=== PATIENT | female | born 1990 | race Caucasian/White ===

== ENCOUNTER 2022-05-21 22:02 | Inpatient (IN) | payer BC ==
[2022-05-21 22:30] VITALS: BMI 20.6
[2022-05-21] MEDS ORDERED: hydrALAZINE 20 MG/ML VIAL SLOW IVP PRN ×2 (22:34→22:35)
[2022-05-21] MEDS ORDERED: Misoprostol 200 MCG TAB PR PRN (22:35)
[2022-05-21] MEDS ORDERED: Lidocaine 1% (PF) 30 ML VIAL SC PRN (22:35)
[2022-05-21] MEDS ORDERED: Acetaminophen 500 MG TAB PO PRN (22:35)
[2022-05-21] MEDS ORDERED: Butorphanol Tartrate 1 MG/ML VIAL SLOW IVP PRN (22:35)
[2022-05-21] MEDS ORDERED: Carboprost 250 MCG/ML AMP IM PRN (22:35)
[2022-05-21] MEDS ORDERED: Ondansetron PF 4 MG/2 ML Vial IVP PRN (22:35)
[2022-05-21] MEDS ORDERED: Promethazine HCl 25 MG/ML VIAL IM PRN (22:35)
[2022-05-21] MEDS ORDERED: Methylergonovine 0.2 MG/ML VIAL IM PRN (22:35)
[2022-05-22 01:02] LABS: Hemoglobin 12.9 g/dL (12.0-15.5); Mean Corpuscular HGB CONC 35.1 g/dL (32.0-36.0); Mean Corpuscular Hemoglobin 31.4 pg (27.0-33.0); Mean Corpuscular Volume 89.5 fl (81.6-98.3); Mean Platelet Volume 10.9 fl (7.4-10.4); Platelet Count 159 10x3/uL (150-450); Red Blood Cell (RBC) Count 4.11 10x6/uL (3.90-5.03); White Blood Cell (WBC) Count 10.5 10x3/uL (3.5-10.5)
[2022-05-22 01:20] LABS: Syphilis Antibody Nonreactive (Nonreactive); Syphilis Antibody Index 0.04 S/CO (<1.00 Non-Reactive)
[2022-05-22 01:21] LABS: HBSAg Index 0.19 S/CO (0-0.99); Hep B Surf Ag Non-Reactive S/CO (NonReactive)
[2022-05-22 02:25] LABS: SARS-CoV-2 NAA Rapid Test Not Detected (NotDetected)
[2022-05-22] MEDS ORDERED: NS w/ Oxytocin 30 units 500 ML ONE (06:54)
[2022-05-22] MEDS: NS w/ Oxytocin 30 units 500 ML IV SCH ×2 (09:15→10:43)
[2022-05-22] MEDS ORDERED: Methylergonovine 0.2 MG/ML VIAL IM PRN (15:00)
[2022-05-22] MEDS ORDERED: Boostrix 0.5 ML (Tdap) VIAL (>/=7 yrs of age) IM ONE (15:00)
[2022-05-22] MEDS ORDERED: HYDROcodone/Acetaminophen 5/325 mg Tablet PO PRN ×2 (15:00)
[2022-05-22] MEDS ORDERED: Misoprostol 200 MCG TAB VAG PRN (15:00)
[2022-05-22] MEDS ORDERED: Benzocaine-Menthol 82.5 ML CAN TOP PRN (15:00)
[2022-05-22] MEDS ORDERED: Ondansetron PF 4 MG/2 ML Vial IVP PRN (15:00)
[2022-05-22] MEDS ORDERED: NS w/ Oxytocin 30 units 500 ML IV SCH (15:00)
[2022-05-22] MEDS ORDERED: Milk Of Magnesia 30 ML UDCUP PO PRN (15:00)
[2022-05-22] MEDS ORDERED: hydrALAZINE 20 MG/ML VIAL SLOW IVP PRN (15:00)
[2022-05-22] MEDS ORDERED: Lanolin Ointment 7 GM TUBE TOP PRN (15:00)
[2022-05-22] MEDS ORDERED: Bisacodyl 10 MG SUPP PR PRN (15:00)
[2022-05-22] MEDS: Ibuprofen 800 MG TAB PO SCH (15:44)
[2022-05-22] MEDS: Ferrous Sulfate 325 MG TAB PO SCH (17:13)
[2022-05-22] MEDS: Docusate 100 MG CAP PO SCH (21:07)
[2022-05-23] MEDS: Ibuprofen 800 MG TAB PO SCH ×3 (04:02→15:38)
[2022-05-23] MEDS: Ferrous Sulfate 325 MG TAB PO SCH ×2 (07:33→17:27)
[2022-05-23] MEDS: Docusate 100 MG CAP PO SCH ×2 (07:46→20:59)
[2022-05-23] MEDS: Prenatal Vitamin 1 TAB PO SCH (07:46)
[2022-05-24] MEDS: Ibuprofen 800 MG TAB PO SCH ×3 (01:15→16:20)
[2022-05-24] MEDS: Docusate 100 MG CAP PO SCH (07:48)
[2022-05-24] MEDS: Prenatal Vitamin 1 TAB PO SCH (07:48)
[2022-05-24] MEDS: Ferrous Sulfate 325 MG TAB PO SCH (09:16)
[2022-05-24 09:42] VITALS: BP 110/55; TEMP 97.9
== END 2022-05-24 17:49 | disposition home or self-care (01) | DRG 805 ==
LOC: CSHLD/OP 22:02 → CSHLD 22:32 → CSHPP 05-22 15:07
PROVIDERS: ADMIT Obstetrics & Gynecology; ATTEND Obstetrics & Gynecology
PROC: 10E0XZZ Delivery of Products of Conception, External Approach (ICD-10-PCS; principal; 2022-05-22)
DX: O42.013 Preterm premature rupture of membranes, onset of labor within 24 hours of rupture, third trimester (principal); O60.14X0 Preterm labor third trimester with preterm delivery third trimester, not applicable or unspecified; Z37.0 Single live birth; Z20.822 Contact with and (suspected) exposure to COVID-19; Z3A.35 35 weeks gestation of pregnancy; O76 Abnormality in fetal heart rate and rhythm complicating labor and delivery
CPT/HCPCS: 36415; 85027; 86780; 86850; 86900; 86901; 87340; 99285; J2590; U0002

== ENCOUNTER 2023-12-23 08:00 | Inpatient (IN) | payer BC ==
[2023-12-23] MEDS ORDERED: Ondansetron PF 4 MG/2 ML Vial IVP PRN (08:14)
[2023-12-23] MEDS ORDERED: Lidocaine 1% (PF) 30 ML VIAL SC PRN (08:14)
[2023-12-23] MEDS ORDERED: Tranexamic Acid 1,000 MG/10 ML VIAL IVP PRN (08:14)
[2023-12-23] MEDS ORDERED: Misoprostol 200 MCG TAB PR PRN (08:14)
[2023-12-23] MEDS ORDERED: Methylergonovine 0.2 MG/ML VIAL IM PRN (08:14)
[2023-12-23] MEDS ORDERED: Promethazine HCl 25 MG/ML VIAL IM PRN (08:14)
[2023-12-23] MEDS ORDERED: HYDROcodone/Acetaminophen 5/325 mg Tablet PO PRN ×4 (08:14→11:16)
[2023-12-23] MEDS ORDERED: fentaNYL 50 mcg/mL 1 mL Vial SLOW IVP PRN (08:14)
[2023-12-23] MEDS ORDERED: hydrALAZINE 20 MG/ML VIAL SLOW IVP PRN ×2 (08:14→11:16)
[2023-12-23] MEDS ORDERED: Ibuprofen 800 MG TAB PO PRN (08:14)
[2023-12-23] MEDS ORDERED: Oxytocin 30 units/NS 500 ML 500 ML IV SCH ×2 (08:15→11:16)
[2023-12-23] MEDS ORDERED: Lactated Ringer's 1,000 ML IV SCH (08:15)
[2023-12-23 09:36] VITALS: BMI 22.3
[2023-12-23] MEDS ORDERED: Lanolin Ointment 7 GM TUBE TOP PRN (11:16)
[2023-12-23] MEDS ORDERED: Milk Of Magnesia 30 ML UDCUP PO PRN (11:16)
[2023-12-23] MEDS ORDERED: Bisacodyl 10 MG SUPP PR PRN (11:16)
[2023-12-23] MEDS ORDERED: Benzocaine-Menthol 82.5 ML CAN TOP PRN (11:16)
[2023-12-23 12:02] LABS: HBsAg Index 0.18 S/CO (0-0.99); Hep B Surf Ag - L&D Non-Reactive S/CO (NonReactive)
[2023-12-23 12:03] LABS: HIV (1/2) Antibody/Antigen Non-Reactive (NonReactive); HIV 1/2 INDEX 0.09 S/CO (<1.00)
[2023-12-23 12:04] LABS: Syphilis Antibody Nonreactive (Nonreactive); Syphilis Antibody Index 0.05 S/CO (<1.00 Non-Reactive)
[2023-12-23 13:22] LABS: Hematocrit 37.4 % (34.9-44.5); Hemoglobin 13.7 g/dL (12.0-15.5); Mean Corpuscular HGB CONC 36.6 g/dL (32.0-36.0); Mean Corpuscular Hemoglobin 32.7 pg (27.0-33.0); Mean Corpuscular Volume 89.3 fL (81.6-98.3); Mean Platelet Volume 11.1 fL (7.4-10.4); Platelet Count 171 10x3/uL (150-450); RBC Distribution Width 13.1 % (11.5-14.5); Red Blood Cell (RBC) Count 4.19 10x6/uL (3.90-5.03); White Blood Cell (WBC) Count 18.2 10x3/uL (3.5-10.5)
[2023-12-23] MEDS: Oxytocin 30 units/NS 500 ML 0 ML ONE (16:32)
[2023-12-23] MEDS: Oxytocin 10 UNITS/ML VIAL ONE (16:32)
[2023-12-23] MEDS: Ferrous Sulfate 325 MG TAB PO SCH (16:33)
[2023-12-23] MEDS: Docusate 100 MG CAP PO SCH ×2 (16:33→21:00)
[2023-12-23] MEDS: Ibuprofen 800 MG TAB PO SCH (16:33)
[2023-12-23] MEDS: Prenatal Vitamin 1 TAB PO SCH (16:33)
[2023-12-23] MEDS: Boostrix 0.5 ML (Tdap) VIAL (>/=7 yrs of age) IM ONE (16:33)
[2023-12-24] MEDS: Prenatal Vitamin 1 TAB PO SCH (08:20)
[2023-12-24 08:36] VITALS: BP 103/58; TEMP 98.4
== END 2023-12-24 13:30 | disposition home or self-care (01) | DRG 807 ==
LOC: EEVIPCON 08:00 → CSHLD/OP 08:00 → EEVIPCON 09:36 → CSHLD 09:36 → CSHPP 12:00
PROVIDERS: ADMIT Obstetrics & Gynecology; ATTEND Obstetrics & Gynecology
PROC: 10E0XZZ Delivery of Products of Conception, External Approach (ICD-10-PCS; principal; 2023-12-23)
DX: O69.81X0 Labor and delivery complicated by cord around neck, without compression, not applicable or unspecified (principal); Z37.0 Single live birth; Z3A.37 37 weeks gestation of pregnancy; Z79.899 Other long term (current) drug therapy
CPT/HCPCS: 36415; 85027; 86780; 86850; 86900; 86901; 87340; 87389; 99285; J2590